=== PATIENT | male | born 1995 | race Caucasian/White ===

== ENCOUNTER 2020-05-26 04:09 | Emergency (ER) | payer SELFPAY ==
[~2020-05-26] VITALS: Ht 190.5 cm; Wt 154.2 kg
[2020-05-26 04:25] VITALS: BP 164/99
== END 2020-05-26 04:27 | disposition home or self-care (01) ==
LOC: ER 04:13
DX: R06.02 Shortness of breath (principal)
CPT/HCPCS: 99282

== ENCOUNTER 2020-06-10 03:46 | Emergency (ER) | payer SELFPAY ==
[~2020-06-10] VITALS: Ht 190.5 cm; Wt 154.2 kg
== END 2020-06-10 04:15 | disposition home or self-care (01) ==
LOC: ER 04:14
DX: R06.02 Shortness of breath (principal)
CPT/HCPCS: 99282